=== PATIENT | female | born 1975 | race Caucasian/White ===

== ENCOUNTER → 2017-01-11 | Outpatient (CLI) | payer BC, MEDICAID ==
[~2017-01-11] MED LIST: LEVO150T5 PO
== END | disposition home or self-care (01) ==
LOC: ROC 15:03
PROVIDERS: ATTEND Radiology Radiation Oncology
DX: C21.1 Malignant neoplasm of anal canal (principal)
CPT/HCPCS: 99212; G0463

== ENCOUNTER → 2017-02-09 | Outpatient (CLI) | payer BC, MEDICAID | END | disposition home or self-care (01) | LOC: ROC 11:20 | PROVIDERS: ATTEND Radiology Radiation Oncology | DX: C21.1 Malignant neoplasm of anal canal (principal) | CPT/HCPCS: 99213; G0463 ==

== ENCOUNTER 2017-03-08 11:12 | Day surgery (SDC) | payer BC, MEDICAID ==
[~2017-03-08] VITALS: Ht 172.7 cm; Wt 78.5 kg
[2017-03-08 11:34] VITALS: BP 108/74
[2017-03-08] MEDS ORDERED: LACTATED RINGERS 1,000 ML IV SCH (11:37)
[2017-03-08] MEDS ORDERED: FENTANYL PF 100 MCG/2ML ONE (12:57)
[2017-03-08] MEDS ORDERED: MIDAZOLAM 1 MG/ML, 5ML ONE (12:57)
== END 2017-03-08 15:00 | disposition home or self-care (01) ==
LOC: OUT 11:12
PROVIDERS: ATTEND Internal Medicine Gastroenterology
DX: K62.4 Stenosis of anus and rectum (principal); K64.8 Other hemorrhoids; Z85.048 Personal history of other malignant neoplasm of rectum, rectosigmoid junction, and anus
CPT/HCPCS: 45331; 45341; 88304; 99152; 99153; J2250; J3010

== ENCOUNTER 2017-04-30 07:07 | Day surgery (SDC) | payer BC ==
[~2017-04-30] VITALS: Ht 172.7 cm; Wt 77.0 kg
[2017-04-30 07:45] VITALS: BP 104/73
[2017-04-30] MEDS ORDERED: SODIUM CHLORIDE 0.9% 1,000 ML IV SCH (07:47)
[2017-04-30] MEDS ORDERED: CEFAZOLIN PMX 1GM/50ML 50 ML IV ONE (08:30)
[2017-04-30] MEDS ORDERED: LIDOCAINE 2%, 20ML ONE (08:36)
[2017-04-30] MEDS ORDERED: FENTANYL PF 100 MCG/2ML ONE (08:51)
[2017-04-30] MEDS ORDERED: MIDAZOLAM 1 MG/ML, 5ML ONE (08:51)
[2017-04-30] MEDS ORDERED: NALOXONE 1 MG/ML, 2ML ONE (08:52)
[2017-04-30] MEDS ORDERED: FLUMAZENIL 0.1 MG/1 ML, 5ML ONE (08:52)
== END 2017-04-30 10:55 | disposition home or self-care (01) ==
LOC: OUT 07:07
PROVIDERS: ATTEND Internal Medicine Hematology & Oncology
DX: Z45.2 Encounter for adjustment and management of vascular access device (principal); C21.0 Malignant neoplasm of anus, unspecified; Z87.891 Personal history of nicotine dependence; Z98.890 Other specified postprocedural states
CPT/HCPCS: 36590; 77001; 99156; 99157; J0690; J2250; J3010; J3490; J7030; J2310

== ENCOUNTER → 2017-05-03 | Outpatient (CLI) | payer BC | END | disposition home or self-care (01) | LOC: ROC 13:11 | PROVIDERS: ATTEND Radiology Radiation Oncology | DX: C21.0 Malignant neoplasm of anus, unspecified (principal) | CPT/HCPCS: 99212; G0463 ==

== ENCOUNTER → 2017-09-21 | Outpatient (CLI) | payer BC | END | disposition home or self-care (01) | LOC: ROC 09:23 | PROVIDERS: ATTEND Radiology Radiation Oncology | DX: Z08 Encounter for follow-up examination after completed treatment for malignant neoplasm (principal); C21.1 Malignant neoplasm of anal canal; Z92.3 Personal history of irradiation; Z92.21 Personal history of antineoplastic chemotherapy | CPT/HCPCS: 99212; G0463 ==